=== PATIENT | female | born 1970 | race Caucasian/White ===

== ENCOUNTER 2022-02-19 16:09 | Inpatient (IN) | payer MEDICAID ==
[~2022-02-19] VITALS: Ht 175.3 cm; Wt 73.8 kg
[2022-02-19] MEDS ORDERED: DiphenhydrAMINE HCL 50 MG/ML VIAL IM ONE (16:30)
[2022-02-19] MEDS ORDERED: HALOPERIDOL LACTATE 5 MG/ML VIAL IM ONE (16:30)
[2022-02-19] MEDS ORDERED: DIAZEPAM 5 MG/ML 2 ML SYRINGE IM ONE (16:30)
[2022-02-19 17:47] LABS: BASOPHILS % (AUTO) 1.9 % (0.0-2.0); EOSINOPHILS % (AUTO) 3.8 % (1.0-6.0); HEMATOCRIT 38.4 % (36-46); HEMOGLOBIN 13.2 g/dL (12.0-16.0); LYMPHOCYTES # (AUTO) 1.6 K/uL (1.0-4.8); LYMPHOCYTES % (AUTO) 33.9 % (22.0-44.0); MEAN CORPUSCULAR HEMOGLOBIN 31.2 pg (26.0-34.0); MEAN CORPUSCULAR HGB CONC 34.5 G/dL (31.0-37.0); MEAN CORPUSCULAR VOLUME 91 fL (80-100); MONOCYTES # (AUTO) 0.4 K/uL (0.1-1.0); MONOCYTES % (AUTO) 9.5 % (2.0-9.0); NEUTROPHILS # (AUTO) 2.3 K/uL (1.8-7.7); NEUTROPHILS % (AUTO) 50.9 % (40.0-70.0); PLATELET COUNT (AUTO) 228 K/uL (150-450); RED BLOOD CELL COUNT(AUTO) 4.24 MIL/uL (4.00-5.20); RED CELL DISTRIBUTION WIDTH 13.2 % (11.5-14.5)
[2022-02-19 17:51] LABS: COVID AG,FIA SOURCE NASAL SWAB
[2022-02-19 17:57] LABS: ANION GAP 8 mmol/L (8-16); CALCIUM, TOTAL 8.7 mg/dL (8.8-10.5); CARBON DIOXIDE 26 mmol/L (22-29); CHLORIDE 106 mmol/L (98-107); CREATININE 0.78 mg/dL (0.60-1.30); GLUCOSE,RANDOM 104 mg/dL (70-110); POTASSIUM 3.7 mmol/L (3.5-5.1); SODIUM SERUM 140 mmol/L (136-145); UREA NITROGEN, BLOOD 10 mg/dL (7-18)
[2022-02-19 17:58] LABS: GLOMERULAR FILTR. RATE CALC > 60 mL/min (>60)
[2022-02-19 18:03] LABS: ALANINE AMINOTRANSFERASE 26 U/L (12-78); ALBUMIN 3.3 g/dL (3.4-5.0); ALKALINE PHOSPHATASE 93 U/L (46-116); ASPARTATE AMINOTRANSFERASE 14 U/L (15-37); BILIRUBIN,TOTAL 0.4 mg/dL (0.1-1.0); TOTAL PROTEIN, SERUM 6.5 g/dL (6.4-8.2)
[2022-02-21 01:09] VITALS: BP 103/68
[2022-02-21] MEDS ORDERED: ACETAMINOPHEN 325 MG TABLET PO PRN (06:00)
[2022-02-21] MEDS ORDERED: NICOTINE 14 MG/24 HOUR PATCH TD PRN (06:00)
[2022-02-21] MEDS ORDERED: LOPERAMIDE HCL 2 MG CAPSULE PO PRN (06:00)
[2022-02-21] MEDS ORDERED: ONDANSETRON HCL 4 MG TABLET PO PRN (06:00)
[2022-02-21] MEDS ORDERED: PETROLATUM,WHITE 28 GM JELLY TP PRN (06:00)
[2022-02-21] MEDS ORDERED: GuaiFENesin/D-METHORPHAN [SUGAR-FREE] 200-20MG/10 ML SYRUP UDCUP PO PRN (06:00)
[2022-02-21] MEDS ORDERED: DOCUSATE SODIUM 100 MG CAPSULE PO PRN (06:00)
[2022-02-21] MEDS ORDERED: MAG HYDROX/AL HYDROX/SIMETH ES 30 ML SUSPENSION UDCUP PO PRN (06:00)
[2022-02-21] MEDS ORDERED: CloNIDine HCL 0.1 MG TABLET PO PRN (06:00)
[2022-02-21] MEDS ORDERED: ALBUTEROL SULFATE HFA 90 MCG/PUFF 8 GM INHALER IH PRN (06:00)
[2022-02-21] MEDS ORDERED: MAGNESIUM HYDROXIDE SUSPENSION 30 ML UDCUP PO PRN (06:00)
[2022-02-21 10:00] VITALS: BP 117/72
[2022-02-21] MEDS: QUEtiapine FUMARATE 200 MG TABLET PO SCH ×2 (12:30→20:02)
[2022-02-22 08:11] VITALS: BP 108/80
[2022-02-22] MEDS: QUEtiapine FUMARATE 200 MG TABLET PO SCH ×3 (09:00→20:07)
[2022-02-22 16:01] VITALS: BP 122/95
[2022-02-22] MEDS: LORazepam 2 MG TABLET PO PRN (18:22)
[2022-02-23 08:23] VITALS: BP 94/57
[2022-02-23] MEDS: QUEtiapine FUMARATE 200 MG TABLET PO SCH ×2 (09:00→20:48)
[2022-02-23 16:39] VITALS: BP 110/81
[2022-02-23] MEDS: LORazepam 2 MG TABLET PO PRN (19:15)
[2022-02-24 08:31] VITALS: BP 125/89
[2022-02-24] MEDS: QUEtiapine FUMARATE 200 MG TABLET PO SCH ×2 (09:00→21:33)
[2022-02-24 16:11] VITALS: BP 104/64
[2022-02-25 08:09] LABS: ANION GAP 6 mmol/L (8-16); CALCIUM, TOTAL 9.2 mg/dL (8.8-10.5); CARBON DIOXIDE 28 mmol/L (22-29); CHLORIDE 105 mmol/L (98-107); CHOL/HDL RATIO 2.8 (3.9-5.7); CREATININE 0.85 mg/dL (0.60-1.30); GLOMERULAR FILTR. RATE CALC > 60 mL/min (>60); GLUCOSE,RANDOM 81 mg/dL (70-110); POTASSIUM 4.1 mmol/L (3.5-5.1); SODIUM SERUM 139 mmol/L (136-145); UREA NITROGEN, BLOOD 19 mg/dL (7-18)
[2022-02-25] MEDS: QUEtiapine FUMARATE 200 MG TABLET PO SCH (08:13)
[2022-02-25 08:34] VITALS: BP 122/74
[2022-02-25] MEDS: IBUPROFEN 400 MG TABLET PO PRN (13:13)
[2022-02-25] MEDS: BENZOCAINE/MENTHOL/ZINC CL 20% 11.9 GM GEL TP PRN (15:55)
[2022-02-25 16:08] VITALS: BP 108/73
[2022-02-25 20:14] VITALS: BP 119/77
[2022-02-25] MEDS: QUEtiapine FUMARATE 300 MG TABLET PO SCH (21:00)
[2022-02-26] MEDS: ZOLPIDEM TARTRATE 10 MG TABLET PO PRN ×2 (02:17→20:15)
[2022-02-26 08:00] VITALS: BP 114/79
[2022-02-26 16:42] VITALS: BP 120/69
[2022-02-26] MEDS: LORazepam 2 MG TABLET PO PRN (20:15)
[2022-02-26] MEDS: QUEtiapine FUMARATE 300 MG TABLET PO SCH (20:16)
[2022-02-27 08:14] VITALS: BP 126/94
[2022-02-27] MEDS: BENZOCAINE/MENTHOL/ZINC CL 20% 11.9 GM GEL TP PRN (11:06)
[2022-02-27] MEDS: IBUPROFEN 400 MG TABLET PO PRN (11:07)
[2022-02-27] MEDS: HALOPERIDOL 5 MG TABLET PO PRN (15:30)
[2022-02-27 16:02] VITALS: BP 108/73
[2022-02-27] MEDS: QUEtiapine FUMARATE 300 MG TABLET PO SCH (21:00)
[2022-02-28 08:08] VITALS: BP 129/87
[2022-02-28 16:05] VITALS: BP 100/67
[2022-02-28] MEDS: IBUPROFEN 400 MG TABLET PO PRN (19:18)
[2022-02-28] MEDS: BENZOCAINE/MENTHOL/ZINC CL 20% 11.9 GM GEL TP PRN (19:28)
[2022-02-28] MEDS: QUEtiapine FUMARATE 200 MG TABLET PO SCH (21:00)
[2022-03-01 08:42] VITALS: BP 130/88
[2022-03-01] MEDS: BENZOCAINE/MENTHOL/ZINC CL 20% 11.9 GM GEL TP PRN ×2 (09:21→21:15)
[2022-03-01] MEDS: IBUPROFEN 400 MG TABLET PO PRN (09:21)
[2022-03-01 12:14] LABS: COVID AG,FIA SOURCE NASOPHARYNGEAL
[2022-03-01] MEDS: LORazepam 2 MG TABLET PO PRN ×2 (15:44→21:15)
[2022-03-01 16:05] VITALS: BP 96/67
[2022-03-01] MEDS: QUEtiapine FUMARATE 200 MG TABLET PO SCH (20:04)
[2022-03-02 01:57] VITALS: BP 135/90
[2022-03-02] MEDS: IBUPROFEN 400 MG TABLET PO PRN ×3 (01:57→23:48)
[2022-03-02] MEDS: HALOPERIDOL 5 MG TABLET PO PRN (07:47)
[2022-03-02] MEDS: BENZOCAINE/MENTHOL/ZINC CL 20% 11.9 GM GEL TP PRN (07:47)
[2022-03-02] MEDS: LORazepam 2 MG TABLET PO PRN (07:47)
[2022-03-02 08:21] VITALS: BP 115/73
[2022-03-02 16:23] VITALS: BP 102/69
[2022-03-02] MEDS: QUEtiapine FUMARATE 200 MG TABLET PO SCH (21:00)
[2022-03-02 23:48] VITALS: BP 119/70
[2022-03-02] MEDS: ZOLPIDEM TARTRATE 10 MG TABLET PO PRN (23:48)
[2022-03-03] MEDS: BENZOCAINE/MENTHOL/ZINC CL 20% 11.9 GM GEL TP PRN ×2 (08:21→20:45)
[2022-03-03] MEDS: IBUPROFEN 400 MG TABLET PO PRN ×2 (08:21→20:30)
[2022-03-03 08:22] VITALS: BP 105/72
[2022-03-03] MEDS: LORazepam 2 MG TABLET PO PRN ×3 (08:28→17:52)
[2022-03-03 12:46] VITALS: BP 108/74
[2022-03-03 16:46] VITALS: BP 105/69
[2022-03-03] MEDS: ZOLPIDEM TARTRATE 10 MG TABLET PO PRN (20:47)
[2022-03-03] MEDS: QUEtiapine FUMARATE 200 MG TABLET PO SCH (21:00)
[2022-03-04] MEDS: LORazepam 2 MG TABLET PO PRN (07:59)
[2022-03-04 08:27] VITALS: BP 143/90
[2022-03-04] MEDS ORDERED: QUET200T30 PO (11:10)
== END 2022-03-04 14:40 | disposition home or self-care (01) | DRG 750 ==
LOC: EMS 16:10 → 3EC 02-20 23:20 → UNDOADMIN 02-20 23:20 → 3EC 02-21 00:42
PROVIDERS: ADMIT Psychiatry & Neurology Psychiatry; ATTEND Psychiatry & Neurology Psychiatry
DX: F25.0 Schizoaffective disorder, bipolar type (principal); E83.51 Hypocalcemia; Z20.822 Contact with and (suspected) exposure to COVID-19; F99 Mental disorder, not otherwise specified; G47.00 Insomnia, unspecified; Z79.899 Other long term (current) drug therapy; Z87.891 Personal history of nicotine dependence; Z91.14 Patient's other noncompliance with medication regimen
CPT/HCPCS: 80048; 80053; 80061; 85025; 99285; G0480; J1200; J1630